=== PATIENT | male | born 1955 | race Caucasian/White ===

== ENCOUNTER → 2019-06-12 09:20 | Outpatient (BNVA) | payer MEDICARE, SELFPAY | PROVIDERS: Family Provider Family Medicine; PCP Family Medicine; Visit Provider Family Medicine | DX: I10 Essential (primary) hypertension (principal); E87.5 Hyperkalemia; F41.1 Generalized anxiety disorder; F51.04 Psychophysiologic insomnia; J31.0 Chronic rhinitis; J44.9 Chronic obstructive pulmonary disease, unspecified; M85.80 Other specified disorders of bone density and structure, unspecified site; Z94.2 Lung transplant status | CPT/HCPCS: 36415; 80053; 80061; 80197; 83735; 85025 ==